=== PATIENT | male | born 1985 | race African-American/Black ===

== ENCOUNTER 2017-09-13 01:16 | Emergency (ER) | payer BC ==
[~2017-09-13] VITALS: Ht 182.9 cm; Wt 93.4 kg
[2017-09-13 01:19] VITALS: Ht 182.9 cm; Wt 93.4 kg
[2017-09-13 02:01] LABS: CALCIUM 9.3 mg/dL (8.5-10.1); CARBON DIOXIDE 28.4 mmol/L (21-32); CHLORIDE SERUM 104 mmol/L (98-107); CREATININE SERUM 1.2 mg/dL (0.7-1.3); GFR1 > 60 mL/min; GLUCOSE SERUM 121 mg/dL (74-106); POTASSIUM SERUM 3.8 mmol/L (3.5-5.1); SODIUM SERUM 138 mmol/L (136-145)
[2017-09-13 02:06] LABS: ALBUMIN 4.1 g/dL (3.4-5.0); ALKALINE PHOSPHATASE 71 U/L (46-116); ALT/SGPT 26 U/L (16-63); AST/SGOT 18 U/L (15-37); BILIRUBIN TOTAL 0.28 mg/dL (0.20-1.00); TOTAL PROTEIN, SERUM 7.3 g/dL (6.4-8.2)
[2017-09-13 02:18] LABS: BASOPHIL % 0.7 % (0-2); PLATELET COUNT 268 x10^3mcL (130-400); RED CELL DISTRIBUTION WIDTH 12.3 % (11.5-14.5)
[2017-09-13 02:38] VITALS: BP 130/75
== END 2017-09-13 02:38 | disposition home or self-care (01) ==
LOC: ED 01:16
PROVIDERS: Emergency Medicine
DX: D86.9 Sarcoidosis, unspecified (principal); I10 Essential (primary) hypertension
CPT/HCPCS: 83880; J1885; Q0092